=== PATIENT | male | born 1940 | race Caucasian/White ===

== ENCOUNTER → 2019-02-11 | Day surgery (SDC) | payer MEDICARE ==
[2019-02-10 09:37] VITALS: BMI 31.3
[~2019-02-11] MED LIST: Fentanyl 100 MCG/2 ML VIAL ONE; Iothalamate Meglumine 60% 50 ML VIAL FS ONE; Phenylephrine HCL 10 MG/ML VIAL ONE; Sodium Chloride 0.9% 100 ML ONE; cefTRIAXone\\ROCEPHIN 2 GM VIAL ONE
--- NOTE | 2019-02-11 07:45 | RAD ---
SUPINE ABDOMEN: Date: 02/11/19 HISTORY: Preoperative. FINDINGS: A double pigtail right ureteral stent is noted. There is a calcification overlying the upper pigtail, presumably within the right renal pelvis. There is gaseous distention of the colon with scattered stool seen throughout the colon. Mild gaseous distention of small bowel loops seen without dilatation. IMPRESSION: 1. Right ureteral stent. Right renal calculus in the region of the right renal pelvis. 2. Nonspecific bowel gas pattern. POS: OFF
--- NOTE | 2019-02-11 11:42 | OP ---
DATE OF PROCEDURE: 02/11/2019 PREOPERATIVE DIAGNOSIS: Right renal stone. POSTOPERATIVE DIAGNOSIS: Right renal stone. PROCEDURE PERFORMED: Right extracorporeal shock wave lithotripsy. ANESTHETIC: General. EBL: Not recorded. FINDINGS: There was about a 1 cm stone that had been in his proximal ureter, but it was up in the renal pelvis. A nice preop KUB today was treated with 2500 shocks at kv level 4 for 2000 shocks and 5 for 500 shocks, it appeared to fragment well. The old stent been in for distal a little over four weeks, it was removed. A retrograde study showed no stones in his ureter and we did pass a new 6 x 26 Polaris double-J stent after a long string attached to it and I will follow up with a KUB in 10 to 14 days and look at removing the stent via the string at that point. DESCRIPTION OF PROCEDURE: After obtaining written and verbal consent from the patient after discussing it with him and his son. After receiving IV Rocephin and after documenting normal preoperative blood work and making sure we could see the stone on his preoperative KUB, he was taken to the operating suite. He was placed in a supine position on the treatment table. PlexiPulses were placed on his lower extremities and turned on. He was given a general anesthetic and oral obturator intubation. He was coupled to the lithotripsy unit and the stone was placed in treatment focal point. Shockwave therapy was commenced starting at a very low kv. A pause was given after couple 100 shocks for a few minutes. We then restarted keeping the rate at 60 and went up to level 4. We kept this level until 2000 shocks and went to level 5 for the last 500 shocks. The stone did appear to fragment well. We used fluoroscopy intermittently to document stone fragmentation and reposition as necessary. After 2500 shocks, he was uncomfortable from the lithotripsy unit and placed in the dorsal lithotomy position and sterilely prepped and draped for cystoscopy. This was done with a 22-Indian sheath and a 30-degree lens and video camera and monitor. There was some blood in the urinary bladder as usual after shockwave lithotripsy. The bladder was filled and emptied number of times, this was examined with a 30-degree lens. There was no evidence of any stones in the bladder, tumors in the bladder, or other abnormality apart from the stent. The distal end of the indwelling stent was grasped and brought out through the urethral meatus. A 0.038 guidewire was fed through this and then the stent was removed over the guidewire. A 5-Indian Pollack catheter was placed over the stent up in the region of the renal pelvis and the wire was removed. Contrast was injected, filling out a mildly dilated renal pelvis with a few small filling defects and an air bubble. There were no stones seen along the course of the ureter. The guidewire was placed through the Pollack catheter. The Pollack catheter was removed and a 6 x 26 Polaris double-J stent was placed over guidewire and pushed up into place with aid of a pusher, so that its proximal end coiled in the renal pelvis and its distal end coiled in the bladder when the wire was removed. The patient's bladder was drained. The instruments were removed. He was taken out of the dorsal lithotomy position and extubated and taken by stretcher to recovery room. Job ID: [id number]
== END ==
LOC: SDC 06:41
PROVIDERS: ATTEND Urology
PROC: 0TF3XZZ Fragmentation in Right Kidney Pelvis, External Approach (ICD-10-PCS; principal; 2019-02-11)
PROC: 0T9680Z Drainage of Right Ureter with Drainage Device, Via Natural or Artificial Opening Endoscopic (ICD-10-PCS; 2019-02-11)
DX: N20.0 Calculus of kidney (principal); Z88.0 Allergy status to penicillin; Z88.8 Allergy status to other drugs, medicaments and biological substances; Z79.82 Long term (current) use of aspirin; Z79.01 Long term (current) use of anticoagulants; Z79.899 Other long term (current) drug therapy
CPT/HCPCS: 74018; 93005; 93010; C1758; J0696; J2370; J3010; J3490